=== PATIENT | male | born 1945 | race Caucasian/White ===

== ENCOUNTER 2021-12-01 15:36 | Observation (INO) | payer MEDICARE, BC ==
[~2021-12-01] VITALS: Ht 175.3 cm; Wt 87.1 kg
[2021-12-01 16:21] LABS: BASO % 0.3 % (0.0-2.0); EOS % 0.1 % (0.0-4.0); GRAN # 8.5 K/mm3 (1.4-6.5); GRAN % 89.3 % (42.2-75.2); HEMATOCRIT 52.2 % (42.0-52.0); HEMOGLOBIN 16.6 g/dl (13.5-18.0); LYMPH # 0.5 K/mm3 (1.2-3.4); LYMPH % 5.6 % (20.0-51.0); MEAN CELL VOLUME 98 fl (80.0-100.0); MEAN CORPUSCULAR HEMOGLOBIN 31 pg (27-31); MEAN CORPUSCULAR HGB CONC 32 g/dl (33.0-37.0); MEAN PLATELET VOLUME 9.6 fl (7.4-10.4); MONO # 0.4 K/mm3 (0.1-0.6); MONO % 4.1 % (1.7-9.3); PLATELET COUNT 209 K/mm3 (130-400); RED BLOOD COUNT 5.33 M/mm3 (4.20-5.60); REDCELL DISTRIBUTION WIDTH-CV 13.6 % (11.5-14.5)
[2021-12-01 16:48] LABS: ALBUMIN 3.8 gm/dL (3.4-4.8); BILIRUBIN,TOTAL 0.5 mg/dL (0.2-1.2); C-REACTIVE PROTEIN 2.75 mg/dL (0.00-0.50); CALCIUM 8.2 mg/dL (8.4-10.2); CREATININE, serum 0.89 mg/dL (0.72-1.25); TOTAL PROTEIN 6.9 gm/dL (6.2-8.1)
[2021-12-01 17:28] LABS: COLLECTION METHOD CLEAN CATCH
[2021-12-01 17:38] LABS: MUCOUS Present (NOT PRESENT); PH 5 (5-8); SQUAMOUS EPITHELIAL None Seen /hpf (0-10); URINE APPEARANCE Hazy (CLEAR/HAZY); URINE BACTERIA Rare /hpf (NONE SEEN); URINE BILIRUBIN Negative (NEGATIVE); URINE BLOOD Negative (NEGATIVE); URINE COLOR Amber (YELLOW); URINE GLUCOSE Negative (NEGATIVE); URINE KETONE Trace (NEGATIVE); URINE LEUKOCYTE ESTERASE Negative (NEGATIVE); URINE NITRATE Negative (NEGATIVE); URINE PROTEIN(semi-quant) 2+ (NEGATIVE)
[2021-12-01] MEDS ORDERED: OMNICEF 300MG300 MG PO (19:20)
[2021-12-01] MEDS ORDERED: EPA FISH OIL1 SGL PO (22:30)
[2021-12-01] MEDS ORDERED: PHARMASSURE CHE30 MG PO (22:31)
[2021-12-01] MEDS ORDERED: VITAMIN D31000 I1 PO (22:31)
[2021-12-01] MEDS ORDERED: CHONDROITIN/GLU1 SGL PO (22:33)
[2021-12-01] MEDS ORDERED: TYLENOL 325MG325 MG PO (22:36)
[2021-12-01 22:54] VITALS: BP 101/62; PULSE 80; PULSE 90; TEMP 97.7
[2021-12-01 23:44] VITALS: BP 109/62; PULSE 91; TEMP 98
[2021-12-02] MEDS ORDERED: CRESTOR5 MG PO (00:36)
--- NOTE | 2021-12-02 01:11 | NUR ---
PATIENT UP TO FLOOR AT 2215. ALERT AND ORIENTED. RED AND DIAPHORETIC, C/O NAUSEA AND ABD CRAMPS. PRN ZOFRAN GIVEN. IVF STARTED AND INFUSING TO 20 G IN R AC WITH INTERMITTENT ABX INFUSING. TOLERATED PO FLUIDS AND JELLO CUP. COLLECTION CUP AT BEDSIDE FOR GI PANEL. ASSESSMENTS COMPLETED. MED RX COMPLETED. PATIENT RESTING COMFORTABLY IN BED.
[2021-12-02 03:52] VITALS: BP 102/58; PULSE 85; TEMP 98.7
[2021-12-02 08:26] VITALS: BP 100/59; PULSE 79; TEMP 97.6
--- NOTE | 2021-12-02 10:11 | NUR ---
RAC IV LEAKING BLOOD, NEW IV STARTED TO LFA. PT APPEARS TO HAVE FLAT AFFECT, ASSESSMENT PERFORMED, PT DENIES PAIN AND N/V/D BUT REPORTS BLEEDING, HAS NOT HAD DIARRHEA SINCE YESTERDAY, PT AOX4, MEDICATIONS GIVEN, NO OTHER NEEDS
[2021-12-02 11:39] VITALS: BP 107/67; PULSE 69; TEMP 98.4
--- NOTE | 2021-12-02 12:06 | NUR ---
IVF DISCONTINUED PER ORDER, HOT TEA BROUGHT IN FOR PT PER PT REQUEST, NO OTHER NEEDS
[2021-12-02] MEDS ORDERED: MOTRIN 200200 MG/TAB PO (13:02)
[2021-12-02] MEDS ORDERED: PRESERVISION1 SGL PO (13:05)
--- NOTE | 2021-12-02 13:09 | NUR ---
[employer] Supervisor met with patient to discuss discharge planning. Patient lives here in [place] and also has a home in [place]. Patient advised his daughter, Sarah (ph#[phone]) lives outside of [place]. Patient sees Dr. Aguirre in [facility] for primary care and uses [facility] for medications while he is here in [place]. Patient does not use any DME and is independent with [facility]. PT/OT are recommending home and patient confirms this is his plan. Patient has two children: Sarah and Forrest. Patient states his daughter Sarah is his DPOA-HC. Discharge Plan: Home
--- NOTE | 2021-12-02 15:49 | NUR ---
PT SLEEPING IN BED AT THIS TIME, APPEARS COMFORTABLE
[2021-12-02 16:00] VITALS: BP 99/66; PULSE 71; TEMP 98.2
--- NOTE | 2021-12-02 18:26 | NUR ---
PT AOX4, PLEASANT, IN BED MOST OF SHIFT, DENIES PAIN, REPORTS BLOATING, DENIES N/V/D, NO OTHER NEEDS
[2021-12-02 19:55] VITALS: BP 102/59; PULSE 68; TEMP 98.7
--- NOTE | 2021-12-02 22:59 | NUR ---
Patient assessed around 2114. Alert and oriented, and able to make needs known. Denies pain and discomfort. Peripheral INT to left forarm. Complained of nausea, and given PRN Zofran as requested. Voices no further questions, needs, or concerns at this time. In bed with call light within reach.
[2021-12-02 23:29] VITALS: BP 110/61; PULSE 67; TEMP 97.9
[2021-12-03 04:14] VITALS: BP 115/70; PULSE 72; TEMP 97.3
--- NOTE | 2021-12-03 06:09 | NUR ---
Patient requested APAP during the night. Called [facility] and received order. Given per orders. Voices no further questions, needs, or concerns at this time. In bed with call light within reach.
[2021-12-03 06:17] LABS: BASO % 0.2 % (0.0-2.0); EOS # 0.1 K/mm3 (0.0-0.7); EOS % 2.1 % (0.0-4.0); GRAN # 2.7 K/mm3 (1.4-6.5); GRAN % 51.8 % (42.2-75.2); HEMATOCRIT 47.1 % (42.0-52.0); HEMOGLOBIN 15.1 g/dl (13.5-18.0); LYMPH # 1.5 K/mm3 (1.2-3.4); LYMPH % 28.2 % (20.0-51.0); MEAN CELL VOLUME 99 fl (80.0-100.0); MEAN CORPUSCULAR HEMOGLOBIN 32 pg (27-31); MEAN CORPUSCULAR HGB CONC 32 g/dl (33.0-37.0); MEAN PLATELET VOLUME 10.1 fl (7.4-10.4); MONO # 0.9 K/mm3 (0.1-0.6); MONO % 17.3 % (1.7-9.3); PLATELET COUNT 187 K/mm3 (130-400); RED BLOOD COUNT 4.78 M/mm3 (4.20-5.60); REDCELL DISTRIBUTION WIDTH-CV 13.4 % (11.5-14.5)
[2021-12-03 06:35] LABS: CALCIUM 8.5 mg/dL (8.4-10.2); CREATININE, serum 0.75 mg/dL (0.72-1.25); POTASSIUM 3.8 mmol/L (3.5-4.5)
--- NOTE | 2021-12-03 07:40 | NUR ---
PT PLEASANT, AOX4, ASSESSMENT PERFORMED, MEDICATIONS GIVEN, NO COMPLAINTS PER PT, PT ORDERED BREAKFAST, CALL LIGHT WITHIN REACH, NO OTHER NEEDS
[2021-12-03 08:14] VITALS: BP 117/71; PULSE 66; TEMP 97.2
--- NOTE | 2021-12-03 09:26 | NUR ---
Initial visit; Patient thanked Conference Services Director for looking in on him and visiting. 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 Conference Services Director offered prayer and blessings. Conference Services Director will follow up.
--- NOTE | 2021-12-03 11:59 | NUR ---
DISCHARGE EDUCATION PROVIDED, IV SITE REMOVED, PT ESCORTED OUT VIA WHEELCHAIR, NO OTHER NEEDS
== END 2021-12-03 11:00 | disposition home or self-care (01) ==
LOC: COL.ER 15:36 → MEDICAL 21:33
PROVIDERS: Family Medicine; Physician Assistant; ADMIT Internal Medicine
DX: A08.11 Acute gastroenteropathy due to Norwalk agent (principal); R19.7 Diarrhea, unspecified; R65.10 Systemic inflammatory response syndrome (SIRS) of non-infectious origin without acute organ dysfunction; R82.81 Pyuria; E78.5 Hyperlipidemia, unspecified; Z79.899 Other long term (current) drug therapy
CPT/HCPCS: G0378; J0696; J1650; J2405; J2550; J7030; J7120; Q9967